=== PATIENT | male | born 1985 ===

== ENCOUNTER 2025-08-26 20:37 | Emergency (ER) | payer SELFPAY ==
--- NOTE | 2025-08-26 20:51 | PC.NURSE ---
NO ANSWER AT ER LOBBY OR OUTSIDE ER TO BE SEEN BY PROVIDER.
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
--- NOTE | 2025-08-26 20:56 | PC.NURSE ---
NO ANSWER AT ER LOBBY OR OUTSIDE ER TO BE SEEN BY PROVIDER.
--- NOTE | 2025-08-26 21:01 | PC.NURSE ---
NO ANSWER AT ER LOBBY OR OUTSIDE ER.
== END 2025-08-26 21:11 | disposition left against medical advice (07) ==
PROVIDERS: Emergency Provider Emergency Medicine
DX: Z53.21 Procedure and treatment not carried out due to patient leaving prior to being seen by health care provider (principal)
CPT/HCPCS: 81001; 99281